=== PATIENT | female | born 1995 | race Asian ===

== ENCOUNTER 2018-06-06 00:19 | Emergency (ER) | payer OTHER ==
--- NOTE | 2018-06-06 00:54 | ED ---
Headache - HPI Summary HPI Summary: This patient is a 22 year old F presenting to [facility] with a chief complaint of DAMON since 2 days ago. The patient rates the pain 5/10 in severity. Symptoms aggravated by nothing. Symptoms alleviated by nothing. Patient reports right ear pain, right eye pain, and photophobia. Patient denies nausea, vomiting, or fever. Patient note she took ibuprofen but it did not alleviate her symptoms. - History Of Current Complaint Chief Complaint: EDHeadache Stated Complaint: HEADACHE Time Seen by Provider: 06/06/18 00:35 Hx Obtained From: Patient Onset/Duration: Gradual Onset, Started days ago - 2 days, Still Present Initially Headache Was: Mild Currently Pain Is: Current Pain Scale(0-10)= - 5, Mild Timing: Constant Aggravating Factor: Nothing Allevating Factors: Nothing Associated Signs And Symptoms: Other (Noted In Comments) - right ear pain, right eye pain - Allergies/Home Medications Allergies/Adverse Reactions: Allergies Allergy/AdvReac Type Severity Reaction Status Date / Time No Known Allergies Allergy Verified 06/06/18 00:24 Home Medications: Home Medications NK [No Home Medications Reported] 06/06/18 [History Confirmed 06/06/18] PMH/Surg Hx/FS Hx/Imm Hx Opthamlomology History: Denies: Hx Legally Blind EENT History: Denies: Hx Deafness - Surgical History Surgery Procedure, Year, and Place: none reported Infectious Disease History: No Infectious Disease History: Denies: Traveled Outside the [place] in Last 30 Days - Family History Known Family History: Negative: Hypertension - Social History Occupation: Student Lives: Dormitory/Roommates Review of Systems Negative: Fever Positive: Photophobia, Other - right eye pain Positive: Ear Ache Negative: Vomiting Positive: Headache All Other Systems Reviewed And Are Negative: Yes Physical Exam - Summary Physical Exam Summary: VITAL SIGNS: Reviewed. GENERAL: Patient is a well-developed and nourished FEMALE who is lying comfortable in the stretcher. Patient is not in any acute respiratory distress. HEAD AND FACE: No signs of trauma. No ecchymosis, hematomas or skull depressions. No sinus tenderness. EYES: PERRLA, EOMI x 2, No injected conjunctiva, no nystagmus. EARS: Hearing grossly intact. Ear canals are within normal limits. Mild right TM hyperemia MOUTH: Oropharynx within normal limits. NECK: Supple, trachea is midline, no adenopathy, no JVD, no carotid bruit, no c- spine tenderness, neck with full ROM. CHEST: Symmetric, no tenderness at palpation LUNGS: Clear to auscultation bilaterally. No wheezing or crackles. CVS: Regular rate and rhythm, S1 and S2 present, no murmurs or gallops appreciated. ABDOMEN: Soft, non-tender. No signs of distention. No rebound no guarding, and no masses palpated. Bowel sounds are normal. EXTREMITIES: FROM in all major joints, no edema, no cyanosis or clubbing. NEURO: Alert and oriented x 3. No acute neurological deficits. Speech is normal and follows commands. SKIN: Dry and warm Triage Information Reviewed: Yes Vital Signs On Initial Exam: Initial Vitals Temp Pulse Resp BP Pulse Ox 99.7 F 72 18 127/93 97 06/06/18 00:21 06/06/18 00:21 06/06/18 00:21 06/06/18 00:21 06/06/18 00:21 Vital Signs Reviewed: Yes Diagnostics - Vital Signs Vital Signs Temp Pulse Resp BP Pulse Ox 06/06/18 00:21 99.7 F 72 18 127/93 97 - Laboratory Lab Statement: Any lab studies that have been ordered have been reviewed, and results considered in the medical decision making process. Headache Course/Dx - Course Course Of Treatment: This patient is a 22 year old F presenting to [facility] with a chief complaint of DAMON, right ear pain, and eye pain since 2 days ago. Test results with no significant abnormalities. In the ED course the patient was given IV fluids, Toradol, Benadryl, Reglan, and Augmentin. Patient will be discharged with and follow up from PCP. The patient is agreeable with this plan. - Diagnoses Provider Diagnoses: Headache, Right otitis media Discharge - Sign-Out/Discharge Documenting (check all that apply): Patient Departure - discharge home - Discharge Plan Condition: Stable Disposition: HOME Patient Education Materials: Ear Infection (ED), Acute Headache (ED) Referrals: Sayda Pedro [Primary Care Provider] - 2 Days Additional Instructions: follow up with primary care physician in 2-3 days. Return to the emergency department with any new or worsening symptoms. - Attestation Statements Document Initiated by Scribe: Yes [facility]ing [facility] Provider For Whom Scribe is Documenting (Include Credential): Colleen Tapia MD Scribe Attestation: Jessica Feliz, scribed for Colleen Tapia MD on 06/06/18 at 0214.
[2018-06-06] MEDS ORDERED: NS 0.9% 1000 ML* 1,000 ML IV ONE (00:56)
[2018-06-06] MEDS ORDERED: diPHENhydraMINE PO* 25 MG PO ONE (00:56)
[2018-06-06] MEDS ORDERED: Metoclopramide IV* 5 MG/ML 2 ML VIAL IV SLOW PU ONE (00:56)
[2018-06-06] MEDS ORDERED: Ketorolac INJ* 30 MG/ML 1 ML VIAL IV PUSH ONE (00:56)
[2018-06-06] MEDS ORDERED: Amoxicillin/Clavulanate TAB* 875 MG PO ONE (00:57)
[2018-06-06 02:40] VITALS: BP 121/87
== END 2018-06-06 02:38 | disposition home or self-care (01) ==
LOC: ED 00:19
DX: R51 Headache (principal); H66.91 Otitis media, unspecified, right ear
CPT/HCPCS: 96374; 96375; 99282; A9270-GY; J1885; J2765